=== PATIENT | male | born 1990 | race Caucasian/White ===

== ENCOUNTER 2021-04-03 23:42 | Emergency (ER) | payer OTHER ==
--- NOTE | 2021-04-04 00:20 | ERPHSYRPT ---
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 PMH significant for cerebral palsy. Patient reported using meth daily but not within the last two days as he is trying to cut down on his use. Onset 20 min SURVEILLANCE TECHNICIAN. Located misternal and non-radiating. Characterized as sharp. Alleviated with ASA. No aggravating factors. No home treatments. Symmetrical chest expansion. heart tones S1/S2 RRR without extra sounds. Lungs vesicular without adventitious sound. Peripheral pulses +3 bilateral. No dependent edema. 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 Patient reported using meth daily but not within the last two days as he is trying to cut down on his use. Timing/Duration: today Activities at Onset: rest Quality: pressure Location: substernal Chest Pain Radiation: no radiation Severity of Pain-Max: mild Severity of Pain-Current: mild Modifying Factors: Improves With: nothing Associated Symptoms: denies symptoms Prior Chest Pain/Cardiac Workup: no prior chest pain Aspirin Treatment Today: no aspirin today Allergies/Adverse Reactions: Penicillins Allergy (Intermediate, Verified 04/03/21 23:46) Rash Home Medications: No Reportable Medications [No Reported Medications] 04/03/21 [History] Hx Tetanus, Diphtheria Vaccination/Date Given: Yes Hx Influenza Vaccination/Date Given: No Travel Risk - International Travel Have you traveled outside of the country in past 3 weeks: No - Coronavirus Screening Are you exhibiting any of the following symptoms?: No Close contact with a COVID-19 positive Pt in past 14-21 Days: No - Vaccine Status Have you recieved a 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: [employer] - Review of Systems Constitutional: No Fever, No Chills Eyes: No Symptoms Ears, Nose, & Throat: No Symptoms Respiratory: No Cough, No Dyspnea Cardiac: Chest Pain, No Edema, No Syncope Abdominal/Gastrointestinal: No Abdominal Pain, No Nausea, No Vomiting, No Diarrhea Genitourinary Symptoms: No Dysuria Musculoskeletal: No Back Pain, No Neck Pain Skin: No Rash Neurological: No Dizziness, No Focal Weakness, No Sensory Changes Psychological: No Symptoms Endocrine: No Symptoms All Other Systems: Reviewed and Negative - Past Medical History Pertinent Past Medical History: Yes GI Medical History: Gallbladder Disease Other Medical History: Cerebal Palsy - Past Surgical History Past Surgical History: Yes Gastrointestinal: Cholecystectomy - Social History Smoking Status: Current every day smoker How long have you smoked: 1 Exposure to second hand smoke: No Drug Use: methamphetamines Patient Lives Alone: No - Nursing Vital Signs Nursing Vital Signs: Initial Vital Signs Temperature 98.7 F 04/03/21 23:44 Pulse Rate 90 04/03/21 23:44 Respiratory Rate 16 04/03/21 23:44 Blood Pressure 119/76 04/03/21 23:44 O2 Sat by Pulse Oximetry 97 04/03/21 23:44 Pain Scale Pain Intensity 3 - Physical Exam General Appearance: no apparent distress, alert Eye Exam: PERRL/EOMI, eyes nml inspection Ears, Nose, Throat Exam: normal ENT inspection, moist mucous membranes Neck Exam: normal inspection, non-tender, supple, full range of motion Respiratory Exam: normal breath sounds, lungs clear, No respiratory distress Cardiovascular Exam: regular rate/rhythm, normal heart sounds Gastrointestinal/Abdomen Exam: soft, No tenderness, No mass Back Exam: normal inspection, No CVA tenderness, No vertebral tenderness Extremity Exam: normal inspection, normal range of motion Neurologic Exam: alert, oriented x 3, cooperative, normal mood/affect, sensation nml, No motor deficits Skin Exam: normal color, warm, dry SpO2: 97 - Course Nursing assessment & vital signs reviewed: Yes EKG Interpreted by Me: Sinus Rhythm, NORMAL ST-T - Radiology Exams Chest X-ray Interpretation: Reviewed by me Ordered Tests: Active Orders 24 hr Category Date Time Status Clean Catch Urine Specimen STAT Care 04/04/21 01:17 Active EKG-ER Only STAT Care 04/04/21 00:17 Active CHEST 1 VIEW (PORTABLE) Stat Exams 04/04/21 00:17 Ordered CBC W DIFF Stat Lab 04/04/21 00:33 Completed CMP Stat Lab 04/04/21 00:33 Completed TROPONIN Q3H Lab 04/04/21 00:33 Completed TROPONIN Q3H Lab 04/04/21 03:30 Ordered TROPONIN Q3H Lab 04/04/21 06:30 Ordered TROPONIN Q3H Lab 04/04/21 09:30 Ordered TROPONIN Q3H Lab 04/04/21 12:30 Ordered Urine Triage Profile Stat Lab 04/04/21 01:20 Received Lab/Rad Data: Laboratory Result Diagrams 04/04/21 00:33 04/04/21 00:33 Laboratory Results 04/04/21 04/04/21 04/04/21 Range/Units 00:33 00:33 00:33 WBC 12.7 H (4.0-10.5) K/mm3 RBC 4.24 (4.1-5.6) M/mm3 Hgb 11.7 L (12.5-18.0) gm/dl Hct 37.2 L (42-50) % MCV 87.7 (78-100) fl MCH 27.6 (26-32) pg MCHC 31.5 L (32-36) g/dl RDW 13.1 (11.5-14.0) % Plt Count 359 (150-450) K/mm3 MPV 10.1 (7.5-11.0) fl Gran % 57.5 (36.0-66.0) % Eos # (Auto) 0.30 (0-0.5) Absolute Lymphs (auto) 4.08 (1.0-4.6) Absolute Monos (auto) 1.00 (0.0-1.3) Lymphocytes % 32.0 (24.0-44.0) % Monocytes % 7.8 (0.0-12.0) % Eosinophils % 2.4 (0.00-5.0) % Basophils % 0.3 (0.0-0.4) % Absolute Granulocytes 7.32 H (1.4-6.9) Basophils # 0.04 (0-0.4) Sodium 141 (137-145) mmol/L Potassium 3.6 (3.5-5.1) mmol/L Chloride 104 (98-107) mmol/L Carbon Dioxide 29 (22-30) mmol/L Anion Gap 12.5 (5-15) MEQ/L BUN 7 L (9-20) mg/dL Creatinine 0.84 (0.66-1.25) mg/dL Estimated GFR > 60.0 ML/MIN Glucose 82 (74-106) mg/dL Calcium 8.9 (8.4-10.2) mg/dL Total Bilirubin 0.40 (0.2-1.3) mg/dL AST 29 (17-59) U/L ALT 23 (0-50) U/L Alkaline Phosphatase 86 (38-126) U/L Troponin I 0.013 (0.000-0.034) ng/mL Serum Total Protein 6.7 (6.3-8.2) g/dL Albumin 3.9 (3.5-5.0) g/dL - Progress Progress: improved Air Movement: good Blood Culture(s) Obtained: No Antibiotics given: No Counseled pt/family regarding: lab results, diagnosis, need for follow-up, rad results, smoking cessation - Departure Departure Disposition: Home Clinical Impression: Chest pain at rest Condition: Stable Critical Care Time: Yes Critical Care Time(excluding separately billable procedures): Critical 30-74 mins Referrals: MARTINA HUNTLEY MD [Primary Care Provider] - Instructions: Chest Pain (DC) Additional Instructions: Discharge/Care Plan HEAVENLY BARRIOS was seen on 04/04/21 in the Emergency Room. The patient was counseled regarding Diagnosis,Lab results, Imaging studies, need for follow up and when to return to the Emergency Room. Prescriptions given: Discharge Note I have spoken with the patient and/or caregivers. I have explained the patient's condition, diagnosis and treatment plan based on the information available to me at this time. I have answered the patient's and/or caregiver's questions and addressed any concerns. The patient and/or caregivers have as good understanding of the patient's diagnosis, condition and treatment plan as can be expected at this point. The vital signs have been stable. The patient's condition is stable and appropriate for discharge from the emergency department. The patient will pursue further outpatient evaluation with the primary care physician or other designated or consulting physician as outlined in the discharge instructions. The patient and/or caregivers are agreeable to this plan of care and follow-up instructions have been explained in detail. The patient and/or caregivers have received these instruction. The patient/and or caregivers are aware that any significant change in condition or worsening of symptoms should prompt an immediate return to this or the closest emergency department or call 911. HEAVENLY BARRIOS was seen on 04/04/21 n the Emergency Room. At that time you were treated for an emergent condition, during your visit Laboratory, Radiology and/or other procedures may have been ordered. It is very important that you follow-up with your Primary Care Physician MARTINA HUNTLEY within the next 24-48 hours to review your Emergency Room visit and the final results of testing that was ordered. Some test results such as Urine Cultures, Blood Cultures, and other cultures if ordered will not be finalized for 24-48 hours. If you do not have a Primary Care Provider please call the medical records department at [phone] ext [phone] to obtain a copy of your results or you may sign into our patient portal to obtain these results by visiting us @ [email or web address] and completing the following steps: 1. Click on the Patient Portal link 2. Click the Patient Self Enrollment Link to complete the enrollment form and entering your 3. Once the enrollment form is completed you will receive an email with a temporary ID and password at the email address you provided. 4. Next choose a user name and password. Your user name must be at least 4 characters long and your password must be at least 4 characters long. 5. Choose a security question from the list and provide your answer to the question. If you already have signed into the Health Portal you may access your Health Care Information 06/02 by the following steps: 1. Login to our website @ [email or web address] 2. Enter your original user name and password. FAQS The [facility] Health Portal is an online tool that contains your Lab Results, Radiology Reports, Visit History, Discharge Instructions and Health Summary Lab and Radiology Results will not be available for 72 hours on the portal. The Portal is a secure site, passwords are encryted and URLs are re-written so they cannot be copied and pasted. You and authorized family members are the only ones who can access your Portal. Also there is a timeout feature that protects your information if you leave the Portal page open. If you have technical difficulty please use the Contact Us link on the page this will allow you to submit any questions you have regarding the Portal or you may contact the Medical Record Department at [phone] ext [phone].
[2021-04-04 00:36] LABS: Absolute Neutrophil Ct (ANC) 7.32 (1.4-6.9); BASOPHIL % 0.3 % (0.0-0.4); Basophil (Absolute #) 0.04 (0-0.4); Eosinophil % 2.4 % (0.00-5.0); Hematocrit 37.2 % (42-50); Hemoglobin 11.7 gm/dl (12.5-18.0); Lymphocyte (Absolute #) 4.08 (1.0-4.6); Mean Cell Volume 87.7 fl (78-100); Mean Corpuscular Hemoglobin 27.6 pg (26-32); Mean Corpuscular Hgb Concent. 31.5 g/dl (32-36); Mean Platelet Volume 10.1 fl (7.5-11.0); Monocytes % 7.8 % (0.0-12.0); Neutrophil % 57.5 % (36.0-66.0); Platelet Count 359 K/mm3 (150-450); Red Blood Count 4.24 M/mm3 (4.1-5.6); Red Cell Distribution Width 13.1 % (11.5-14.0); White Blood Count 12.7 K/mm3 (4.0-10.5)
[2021-04-04 00:47] LABS: ALBUMIN 3.9 g/dL (3.5-5.0); ALKALINE PHOSPHATASE 86 U/L (38-126); ANION GAP 12.5 MEQ/L (5-15); BLOOD UREA NITROGEN 7 mg/dL (9-20); CHLORIDE 104 mmol/L (98-107); Calcium 8.9 mg/dL (8.4-10.2); Carbon Dioxide 29 mmol/L (22-30); Creatinine 1 0.84 mg/dL (0.66-1.25); EST GLOMERULAR FILTRATION RATE > 60.0 ML/MIN; Glucose 82 mg/dL (74-106); Potassium 3.6 mmol/L (3.5-5.1); SGOT/AST 29 U/L (17-59); SGPT/ALT 23 U/L (0-50); SODIUM 141 mmol/L (137-145); Total Protein 6.7 g/dL (6.3-8.2)
[2021-04-04 01:39] LABS: Amphetamine,Urine POSITIVE (NEGATIVE); Barbiturate,Urine NEGATIVE (NEGATIVE); Benzodiazepine,Urine NEGATIVE (NEGATIVE); Cocaine,Urine NEGATIVE (NEGATIVE); Methadone,Urine NEGATIVE (NEGATIVE); Opiate,Urine NEGATIVE (NEGATIVE); PCP,Urine NEGATIVE (NEGATIVE); THC,Urine NEGATIVE (NEGATIVE)
[2021-04-04 01:51] VITALS: BP 124/68; PULSE 78; O2SAT 99
--- NOTE | 2021-04-04 07:44 | XRAY ---
Indication: Chest pain. Comparison: None Portable chest demonstrates normal heart, lungs, and bony thorax.
== END 2021-04-04 01:47 | disposition home or self-care (01) ==
LOC: ED 23:42
DX: R07.89 Other chest pain (principal)
CPT/HCPCS: 36415; 71045; 80053; 80307; 84484; 85025; 93005; 99284; 99291

== ENCOUNTER 2022-09-07 01:33 | Emergency (ER) | payer OTHER ==
[2022-09-07 01:35] VITALS: BP 96/73; PULSE 84; O2SAT 97
[2022-09-07] MEDS ORDERED: MOTRIN 600 MG ONE (02:17)
--- NOTE | 2022-09-07 02:17 | ERPHSYRPT ---
- History of Present Illness Time Seen by Provider: 09/07/22 02:14 Exam Limitations: no limitations Patient Subjective Stated Complaint: pt states he is having lower back pain. rates 5/10 and states it started 20 min prior to com ing into the er. Triage Nursing Assessment: pt alert and oriented, answers questions approp. pt arrive per ambulance. ambulates from [place] to room with steady gait noted. respirations nonlabored. skin warm and dry. pt deneis numbness or tinglin in extremities. Physician History: Patient a 32-year-old male presents emergency department via EMS for evaluation of acute on chronic back pain. Patient has chronic back pain which he attributes to his CP. Patient only takes ibuprofen. Patient requesting ibuprofen. Patient declined a back x-ray or imaging studies. Patient states he has had it worked up extensively in the past. There is no change in the characteristics of his back pain he just wants ibuprofen. No fever. No recent back procedure. No trauma. No saddle anesthesia. No change in bowel bladder function. Patient also requesting a sandwich. Patient voices no other complaints or concerns at this time. Portions of this note were created with voice recognition technology. There may be grammatical, spelling, punctuation or sound alike errors Timing/Duration: today Method of Injury: other (No injury) Quality: aching Back Pain Location: lumbar spine Severity of Pain-Max: moderate Severity of Pain-Current: mild Modifying Factors: Improves With: movement, other (Movement) Associated Symptoms: denies symptoms Previous symptoms: same symptoms as today Allergies/Adverse Reactions: Penicillins Allergy (Intermediate, Verified 09/07/22 01:50) Rash Home Medications: No Reportable Medications [No Reported Medications] 04/03/21 [History] Hx Tetanus, Diphtheria Vaccination/Date Given: Yes Hx Influenza Vaccination/Date Given: No Hx Pneumococcal Vaccination/Date Given: No Immunizations Up to Date: Yes Travel Risk - International Travel Have you traveled outside of the country in past 3 weeks: No - Coronavirus Screening Are you exhibiting any of the following symptoms?: No Close contact with a COVID-19 positive Pt in past 14-21 Days: No - Vaccine Status Have you recieved a Covid-19 vaccination: 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[employer] - Review of Systems Constitutional: No Symptoms, No Fever, No Chills Eyes: No Symptoms Ears, Nose, & Throat: No Symptoms Respiratory: No Symptoms, No Cough, No Dyspnea Cardiac: No Symptoms, No Chest Pain, No Edema, No Syncope Abdominal/Gastrointestinal: No Symptoms, No Abdominal Pain, No Nausea, No Vomiting, No Diarrhea Genitourinary Symptoms: No Symptoms, No Dysuria Musculoskeletal: No Symptoms, No Back Pain, No Neck Pain Skin: No Symptoms, No Rash Neurological: No Symptoms, No Dizziness, No Focal Weakness, No Sensory Changes Psychological: No Symptoms Endocrine: No Symptoms Hematologic/Lymphatic: No Symptoms Immunological/Allergic: No Symptoms All Other Systems: Reviewed and Negative - Past Medical History Pertinent Past Medical History: Yes GI Medical History: Gallbladder Disease Other Medical History: Cerebral Palsy - Past Surgical History Past Surgical History: Yes Gastrointestinal: Cholecystectomy - Social History Smoking Status: Current every day smoker How long have you smoked: 16 yrs Exposure to second hand smoke: No Drug Use: marijuana Patient Lives Alone: (homeless) - Nursing Vital Signs Nursing Vital Signs: Initial Vital Signs Temperature 98.6 F 09/07/22 01:33 Pulse Rate 84 09/07/22 01:33 Respiratory Rate 16 09/07/22 01:33 Blood Pressure 96/73 09/07/22 01:33 O2 Sat by Pulse Oximetry 97 09/07/22 01:33 Pain Scale Pain Intensity [Lower Back] 5 Pain Intensity 5 - Physical Exam General Appearance: no apparent distress, alert Eye Exam: PERRL/EOMI, eyes nml inspection Ears, Nose, Throat Exam: normal ENT inspection, TMs normal, pharynx normal Neck Exam: normal inspection, non-tender, supple, full range of motion, No meningismus, No midline tenderness Respiratory Exam: normal breath sounds, lungs clear, airway intact, No respiratory distress Cardiovascular Exam: regular rate/rhythm, normal heart sounds Gastrointestinal Exam: soft, No tenderness, No mass Back Exam: normal inspection Extremity Exam: normal inspection, normal range of motion, No calf tenderness, No pedal edema Neurologic Exam: alert, oriented x 3, cooperative, 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 No interval trauma. No fever. Physical exam reveals some tenderness at the bilateral lumbar paraspinal musculature. Patient declined testing/imaging studies. Patient served as independent historian. No outside documents reviewed. No independent interpretation of testing. Management not discussed with another provider. Complexity of problem addressed is low, acute uncomplicated. No critical care time. Complex of data reviewed and analyzed is none. Risk of complication and or risk of morbidity/mortality of patient management is minor. Patient received nonprescription great oral analgesic. Patient reassessed. He feels well. He voices no other complaints or concerns at this time. Patient requesting a sandwich. Patient states he is ready for discharge. He voices no other complaints or concerns at this time. He agrees to follow-up with his primary care doctor within 48 hours for reevaluation. Portions of this note were created with voice recognition technology. There may be grammatical, spelling, punctuation or sound alike errors 09/07/22 02:17 Counseled pt/family regarding: diagnosis, need for follow-up - Departure Departure Disposition: Home Clinical Impression: Chronic back pain greater than 3 months duration Condition: Stable Critical Care Time: No Referrals: MARTINA HUNTLEY MD [Primary Care Provider] - Follow up/PCP as directed Additional Instructions: Discharge/Care Plan HEAVENLY BARRIOS was seen on 09/07/22 in the Emergency Room. The patient was counseled regarding Diagnosis,Lab results, Imaging studies, need for follow up and when to return to the Emergency Room. Prescriptions given: Discharge Note I have spoken with the patient and/or caregivers. I have explained the patient's condition, diagnosis and treatment plan based on the information available to me at this time. I have answered the patient's and/or caregiver's questions and addressed any concerns. The patient and/or caregivers have as good understanding of the patient's diagnosis, condition and treatment plan as can be expected at this point. The vital signs have been stable. The patient's condition is stable and appropriate for discharge from the emergency department. The patient will pursue further outpatient evaluation with the primary care physician or other designated or consulting physician as outlined in the discharge instructions. The patient and/or caregivers are agreeable to this plan of care and follow-up instructions have been explained in detail. The patient and/or caregivers have received these instruction. The patient/and or caregivers are aware that any significant change in condition or worsening of symptoms should prompt an immediate return to this or the closest emergency department or call 911.
[2022-09-07] MEDS: MOTRIN 600 MG PO ONE (02:19)
== END 2022-09-07 02:24 | disposition home or self-care (01) ==
LOC: ED 01:33
DX: G89.29 Other chronic pain (principal); M54.50 Low back pain, unspecified; G80.9 Cerebral palsy, unspecified; Z72.0 Tobacco use; Z59.00 Homelessness unspecified
CPT/HCPCS: 99281; A9270-GY